=== PATIENT | female | born 1975 | race Caucasian/White ===

== ENCOUNTER 2018-03-31 23:01 | Emergency (ER) | payer OTHER ==
[~2018-03-31] VITALS: Ht 170.2 cm; Wt 80.0 kg
[2018-03-31 23:03] VITALS: BP 119/75
[2018-03-31] MEDS ORDERED: CYCL5TAB PO (23:17)
[2018-03-31] MEDS ORDERED: ACETAMINOPHEN 500 MG TABLET PO ONE (23:30)
[2018-03-31] MEDS ORDERED: ACETAMINOPHEN 500 MG TABLET ONE (23:30)
[2018-03-31] MEDS ORDERED: IBUPROFEN 200 MG TABLET PO ONE (23:30)
[2018-03-31] MEDS ORDERED: IBUPROFEN 200 MG TABLET ONE (23:31)
== END 2018-04-01 00:04 | disposition home or self-care (01) ==
LOC: ED 23:58
DX: S60.221A Contusion of right hand, initial encounter (principal); X58.XXXA Exposure to other specified factors, initial encounter; Y93.89 Activity, other specified; Y92.89 Other specified places as the place of occurrence of the external cause; Y99.8 Other external cause status
CPT/HCPCS: 99284